=== PATIENT | female | born 1965 | race Caucasian/White ===

== ENCOUNTER → 2019-01-04 | Outpatient (CLI) | payer OTHER ==
[~2019-01-04] MED LIST: Aspirin EC81 MG PO; Estradiol0.5 MG PO; Ginger250 MG; LORA10 PO; MAGCHL64ER; VALSARTAN160 MG PO
[2019-01-04 08:18] LABS: BASOPHILS ABSOLUTE AUTO 0.02 K/mm3 (0.00-0.23); BASOPHILS PERCENT AUTO 0 % (0-2); EOSINOPHILS PERCENT AUTO 1 % (0-6); Hematocrit 44.3 % (33.0-51.0); Hemoglobin 15.2 g/dL (11.5-16.0); IMMATURE GRAN ABSOLUTE AUTO 0.03 K/mm3 (0.00-0.10); IMMATURE GRAN PERCENT AUTO 0 % (0-1); LYMPHOCYTES ABSOLUTE AUTO 1.29 K/mm3 (0.84-5.20); LYMPHOCYTES PERCENT AUTO 16 % (21-46); MONOCYTES ABSOLUTE AUTO 0.62 K/mm3 (0.16-1.47); MONOCYTES PERCENT AUTO 8 % (4-13); Mean Corpuscular HGB Conc 34.3 g/dL (31.5-36.5); Mean Corpuscular Volume 88 fL (80-100); Mean Platelet Volume 11.2 fL (9.1-12.4); NEUTROPHILS ABSOLUTE AUTO 6.01 K/mm3 (1.96-9.15); NEUTROPHILS PERCENT AUTO 75 % (41-73); Platelet Count 261 K/mm3 (150-400); RDW Coefficient Variation 13.2 % (11.7-14.2); RDW Standard Deviation 41.5 fL (35.1-46.3); Red Blood Cell Count 5.06 M/mm3 (3.80-5.20); White Blood Cell Count 8.07 K/mm3 (4.00-11.30)
[2019-01-04 08:28] LABS: Alanine Aminotransfer (ALT/SGP 30 U/L (12-78); Albumin, Blood 3.9 g/dL (3.4-5.0); Albumin/Globulin Ratio 1.1 (0.8-1.8); Alk Phos 78 U/L (40-126); Anion Gap 9 mmol/L (6-16); Aspartate Aminotrans (AST/SGOT 24 U/L (12-37); Bilirubin, Total 0.7 mg/dL (0.1-1.0); Blood Urea Nitrogen 16 mg/dL (8-24); CO2, Blood 26 mmol/L (21-32); Calcium, Blood 8.2 mg/dL (8.5-10.1); Chloride, Blood 101 mmol/L (98-108); Globulin, Blood 3.5 g/dL (2.2-4.0); Glomerular Filtration Rate >60 (60-); Glucose, Blood 108 mg/dL (70-99); Potassium, Blood 3.8 mmol/L (3.5-5.5); Sodium, Blood 136 mmol/L (136-145); Total Protein, Blood 7.4 g/dL (6.4-8.2)
== END | disposition home or self-care (01) ==
LOC: LAB EV 08:12 → LAB SHORT 08:12
PROVIDERS: General Practice
DX: K29.70 Gastritis, unspecified, without bleeding (principal)
CPT/HCPCS: 80053; 83690; 85025

== ENCOUNTER 2020-04-21 17:30 | Emergency (ER) | payer OTHER ==
[~2020-04-21] VITALS: Ht 167.6 cm; Wt 88.5 kg
[2020-04-21] MEDS ORDERED: AMLO5 PO (19:59)
[2020-04-21] MEDS ORDERED: ROSU10TA PO (20:00)
[2020-04-21] MEDS ORDERED: Roxicodone5 MG PO (21:04)
== END 2020-04-21 21:23 | disposition home or self-care (01) ==
LOC: ER 17:30
DX: S42.202A Unspecified fracture of upper end of left humerus, initial encounter for closed fracture (principal); Z88.8 Allergy status to other drugs, medicaments and biological substances; Z79.3 Long term (current) use of hormonal contraceptives; Z79.899 Other long term (current) drug therapy; W01.0XXA Fall on same level from slipping, tripping and stumbling without subsequent striking against object, initial encounter
CPT/HCPCS: 73030; 99283-25; A9270

== ENCOUNTER → 2020-07-14 | Outpatient (CLI) | payer MEDICARE ==
[~2020-07-14] MED LIST changes: +AMLO5 PO; +ROSU10TA PO; +Roxicodone5 MG PO
== END | disposition home or self-care (01) ==
LOC: LAB SHORT 12:14 → PLD 12:14
DX: D22.39 Melanocytic nevi of other parts of face (principal)
CPT/HCPCS: 88305

== ENCOUNTER → 2021-07-14 | Outpatient (CLI) | payer MEDICARE | END | disposition home or self-care (01) | LOC: LAB 12:13 → LAB SHORT 12:13 | DX: D48.5 Neoplasm of uncertain behavior of skin (principal) | CPT/HCPCS: 88305 ==

== ENCOUNTER → 2021-08-19 | Outpatient (CLI) | payer MEDICARE | END | disposition home or self-care (01) | LOC: LAB SHORT 14:46 | DX: D22.5 Melanocytic nevi of trunk (principal) | CPT/HCPCS: 88305 ==

== ENCOUNTER 2021-11-18 13:56 | Day surgery (SDC) | payer OTHER ==
[~2021-11-18] VITALS: Ht 167.6 cm; Wt 85.6 kg
[~2021-11-18 13:56] MED LIST changes: +LISI20 PO; +TIZA4 PO; +ZYRTEC10 M2 PO
--- NOTE | 2021-11-18 14:50 | NUR ---
11/18/21 1450 Kayla Gonzales 1 TRY RIGHT MCKNIGHT CODYW
== END 2021-11-18 16:32 | disposition home or self-care (01) ==
LOC: ORSCSDS 13:56
PROVIDERS: Internal Medicine Gastroenterology
PROC: 0DJD8ZZ Inspection of Lower Intestinal Tract, Via Natural or Artificial Opening Endoscopic (ICD-10-PCS; principal; 2021-11-18 15:15)
DX: R10.84 Generalized abdominal pain (principal); Z86.010 Personal history of colon polyps; K57.30 Diverticulosis of large intestine without perforation or abscess without bleeding; K59.00 Constipation, unspecified; Z80.0 Family history of malignant neoplasm of digestive organs; E66.9 Obesity, unspecified; Z68.31 Body mass index [BMI] 31.0-31.9, adult; Z79.899 Other long term (current) drug therapy
CPT/HCPCS: J0330; J0461; J2405; J2704; J7120

== ENCOUNTER → 2022-06-22 | Outpatient (CLI) | payer OTHER | LOC: PLD 11:16 → LAB SHORT 11:16 | DX: D22.5 Melanocytic nevi of trunk (principal); L81.4 Other melanin hyperpigmentation | CPT/HCPCS: 88305 ==

== ENCOUNTER 2022-11-15 06:04 | Day surgery (SDC) | payer OTHER ==
[~2022-11-15] VITALS: Ht 167.6 cm; Wt 90.3 kg
[2022-11-15] MEDS ORDERED: VALS80 PO (06:53)
--- NOTE | 2022-11-15 08:38 | NUR ---
11/15/22 0838 Saulo Vieyra NO 3 LEAD, PER DR. DYKES.
--- NOTE | 2022-11-15 09:50 | NUR ---
11/15/22 0950 Saulo Vieyra PT REPORTED 1/10 PAIN PRIOR TO DISCHARGE. SHE STATED PAIN WAS TOLERABLE AND DENIED NAUSEA.
== END 2022-11-15 09:44 | disposition home or self-care (01) ==
LOC: ORSCSDS 06:04
PROVIDERS: Orthopaedic Surgery
PROC: 0SBC4ZZ Excision of Right Knee Joint, Percutaneous Endoscopic Approach (ICD-10-PCS; principal; 2022-11-15 07:30)
DX: S83.241A Other tear of medial meniscus, current injury, right knee, initial encounter (principal); M17.11 Unilateral primary osteoarthritis, right knee; I10 Essential (primary) hypertension; E78.00 Pure hypercholesterolemia, unspecified; Z79.899 Other long term (current) drug therapy; Z79.82 Long term (current) use of aspirin
CPT/HCPCS: A9270; J0690; J1100; J1885; J2250; J2370; J2405; J2704; J2765; J2795; J3010

== ENCOUNTER → 2023-06-21 | Outpatient (CLI) | payer OTHER ==
[~2023-06-21] MED LIST changes: +VALS80 PO
== END | disposition home or self-care (01) ==
LOC: LAB 15:21 → LAB SHORT 15:21
DX: N39.0 Urinary tract infection, site not specified (principal)
CPT/HCPCS: 87077; 87086; 87186

== ENCOUNTER → 2023-07-04 | Outpatient (CLI) | payer OTHER | LOC: LAB SHORT 11:34 → LAB 11:34 | DX: N39.0 Urinary tract infection, site not specified (principal) | CPT/HCPCS: 87077; 87086; 87186 ==

== ENCOUNTER 2024-04-17 09:40 | Emergency (ER) | payer OTHER ==
[~2024-04-17] VITALS: Ht 167.6 cm; Wt 86.2 kg
[2024-04-17 09:47] VITALS: BP 159/106
[2024-04-17] MEDS ORDERED: Ketorolac Tromethamine 30mg Vial IM ONE (11:00)
[2024-04-17] MEDS ORDERED: Percocet 5-3251 EACH PO (11:42)
[2024-04-17] MEDS ORDERED: OxyCODONE 5 mg/Acetamin 325 mg TABLET PO ONE (11:50)
== END 2024-04-17 12:03 | disposition home or self-care (01) ==
LOC: ER 09:40
DX: M25.562 Pain in left knee (principal); Z79.899 Other long term (current) drug therapy; Z88.1 Allergy status to other antibiotic agents; Z88.8 Allergy status to other drugs, medicaments and biological substances
CPT/HCPCS: 73562-LT; 96372; 99283-25; A9270; J1885

== ENCOUNTER 2024-09-04 10:03 | Day surgery (SDC) | payer OTHER ==
[~2024-09-04] VITALS: Ht 167.6 cm; Wt 90.2 kg
[2024-09-04] VITALS (11 sets, daily range): BP systolic 92–166; BP diastolic 59–100
[~2024-09-04 10:03] MED LIST changes: +Acetaminophen 500 MG Tab PO SCH; +CeFAZolin Sodium 2,000 MG in NS 100 ML IV SCH; +Chlorhexidine Mouth Care 15 ML UDC MT SCH; +Flonase 0.05% N16 GM; +GENICIN500 M1 PO; +Lactated Ringer's 1,000 ML IV SCH; +MULVITA PO; +OxyCODONE HCL 10 MG TABCR PO SCH; +Percocet 5-3251 EACH PO; +ROSUVASTATIN CA10 MG PO; +Tranexamic Acid 1,000 MG in NS 100 ML IV SCH; -VALS80 PO; +XYZAL5 MG PO; -ZYRTEC10 M2 PO
[2024-09-04] MEDS ORDERED: Ropivacaine 0.5% HCl/Pf 123.125 MG,EPINEPHrine HCL 0.25 MG,Ketorolac Tromethamine 15 MG... INFIL SCH (10:25)
[2024-09-04] MEDS ORDERED: Midazolam HCl 1MG / ML 2ML Vial ONE (13:19)
[2024-09-04] MEDS ORDERED: propofoL 60 ML IV ONE (13:43)
[2024-09-04] MEDS ORDERED: Fluticasone 0.05% Nasal Spray PRN (14:05)
[2024-09-04] MEDS ORDERED: Bisacodyl 10 MG Supp PR PRN (14:10)
[2024-09-04] MEDS ORDERED: DiphenhydrAMINE HCL 25 MG Cap PO PRN (14:10)
[2024-09-04] MEDS ORDERED: Phenylephrine HCl 100 MCG/ML-NS 10MLSYR (1MG/10ML) ONE (14:12)
[2024-09-04] MEDS ORDERED: Magnesium Hydroxide Conc 10 ML UDC PO PRN (14:15)
[2024-09-04] MEDS ORDERED: Lactated Ringer's 1,000 ML IV SCH (14:15)
[2024-09-04] MEDS ORDERED: Ondansetron HCl 2 MG / ML 2ML Vial IV PRN (14:15)
[2024-09-04] MEDS ORDERED: Metoclopramide HCl 5MG / ML 2ML Vial IV PRN (14:20)
[2024-09-04] MEDS ORDERED: Promethazine HCl 25 MG Tab PO PRN (14:35)
[2024-09-04] MEDS ORDERED: FLU VACC TS2024-25(6MOS UP)/PF 45 MCG/0.5 ML SYRINGE IM SCH (14:35)
[2024-09-04] MEDS ORDERED: HYDROmorphone HCl 2 MG Tab PO PRN (14:35)
[2024-09-04] MEDS ORDERED: HYDROmorphone HCl/Pf 1MG SYR IV PRN (14:35)
[2024-09-04] MEDS ORDERED: Acetaminophen 500 MG Tab PO SCH (16:00)
[2024-09-04] MEDS ORDERED: Ketorolac Tromethamine 15mg Vial IV SCH (18:00)
--- NOTE | 2024-09-04 18:27 | NUR ---
SHIFT SUMMARY ARRIVED AROUND 1600, WAS INITIALLY FEELING VERY WELL BUT AFTER SPINAL BEGAN TO WEAR OFF HAS BECOME PAINFUL & NAUSEATED. STILL CANNOT LIFT SURGICAL LEG BUT APPEARS TO HAVE GOOD SENSATION. SURG SITE WNL. WAS ABLE TO HAVE SOME BITES OF DINNER. NO VOID OR OOB DUE TO SPINAL.
[2024-09-04] MEDS ORDERED: Losartan Potassium 50 MG Tab PO SCH (21:00)
[2024-09-04] MEDS ORDERED: Rosuvastatin Calcium 10 MG Tab PO SCH (21:00)
[2024-09-04] MEDS ORDERED: TiZANidine HCl 4 MG Tab PO SCH (21:00)
[2024-09-04] MEDS ORDERED: Docusate Sodium 100 MG Cap PO SCH (21:00)
[2024-09-04] MEDS ORDERED: EstradioL 0.5 MG Tablet PO SCH (21:00)
[2024-09-04] MEDS ORDERED: CeFAZolin Sodium 2,000 MG in NS 100 ML IV SCH (21:45)
[2024-09-05 00:28] VITALS: BP 111/66
[2024-09-05 04:29] VITALS: BP 127/79
--- NOTE | 2024-09-05 05:21 | NUR ---
SHIFT SUMMARY PT POD 0 LEFT TKA. PT HAS BEEN UP AND AMBULATING, TOLERATING PO INTAKE AND VOIDING. PAIN MANAGED WITH MEDS PER EMAR. SURGICAL SITE WNL. VITALS STABLE. PLAN OF CARE REMAINS UNCHANGED. PLAN IS FOR DISCHARGE TODAY. BED IN LOWEST POSITION, CALL LIGHT WITHIN REACH.
[2024-09-05 05:51] LABS: BASOPHILS ABSOLUTE AUTO 0.03 K/mm3 (0.00-0.23); BASOPHILS PERCENT AUTO 0 % (0-2); EOSINOPHILS ABSOLUTE AUTO 0.09 K/mm3 (0.00-0.68); EOSINOPHILS PERCENT AUTO 1 % (0-6); Hematocrit 39.1 % (33.0-51.0); Hemoglobin 13.2 g/dL (11.5-16.0); IMMATURE GRAN ABSOLUTE AUTO 0.02 K/mm3 (0.00-0.10); IMMATURE GRAN PERCENT AUTO 0 % (0-1); LYMPHOCYTES ABSOLUTE AUTO 2.11 K/mm3 (0.84-5.20); LYMPHOCYTES PERCENT AUTO 21 % (21-46); MONOCYTES ABSOLUTE AUTO 1.15 K/mm3 (0.16-1.47); MONOCYTES PERCENT AUTO 11 % (4-13); Mean Corpuscular HGB 30.4 pg (26.0-34.0); Mean Corpuscular HGB Conc 33.8 g/dL (31.5-36.5); Mean Corpuscular Volume 90 fL (80-100); Mean Platelet Volume 10.7 fL (9.1-12.4); NEUTROPHILS ABSOLUTE AUTO 6.79 K/mm3 (1.96-9.15); NEUTROPHILS PERCENT AUTO 67 % (41-73); Platelet Count 264 K/mm3 (150-400); RDW Coefficient Variation 12.8 % (11.7-14.2); RDW Standard Deviation 42.5 fL (35.1-46.3); Red Blood Cell Count 4.34 M/mm3 (3.80-5.20); White Blood Cell Count 10.19 K/mm3 (4.00-11.30)
[2024-09-05 06:20] LABS: Bun/Creatinine Ratio 14.4 (12.0-20.0); Calcium, Blood 8.9 mg/dL (8.5-10.1); Creatinine, Blood 0.63 mg/dL (0.40-1.00); Potassium, Blood 4.4 mmol/L (3.5-5.5)
[2024-09-05 07:32] VITALS: BP 120/66
[2024-09-05] MEDS ORDERED: Loratadine 10 MG Tab PO SCH (09:00)
[2024-09-05] MEDS ORDERED: Aspirin 81 MG Chew PO SCH (09:00)
[2024-09-05] MEDS ORDERED: AmLODIPine Besylate 5 MG Tab PO SCH (09:00)
[2024-09-05] MEDS ORDERED: Multivitamins 1 Tab PO SCH (09:00)
[2024-09-05] MEDS ORDERED: ASPI81CH PO (09:23)
--- NOTE | 2024-09-05 09:56 | NUR ---
DISCHARGE PT WORKED w/ THERAPY. PAIN MANAGEMENT IS AN ISSUE BUT FEELS OK DC'ing & DISCUSSED w/ DIDIER TO CALL FOR UNCONTROLLED PAIN. EATING, DRINKING, & VOIDING WELL. MELANY & LAUREN CERRATO SENT w/ PT. ESCORTED OUT VIA W/C.
[2024-09-05] MEDS ORDERED: EstradioL 0.5 MG Tablet PO SCH (21:00)
== END 2024-09-05 10:07 | disposition home or self-care (01) ==
LOC: ORSCMMR 10:03 → SURS 15:39 → ORSCMMR 23:00 → SURS 23:00 → ORSCMMR 09-05 10:07
PROVIDERS: Orthopaedic Surgery
PROC: 0SRD0JA Replacement of Left Knee Joint with Synthetic Substitute, Uncemented, Open Approach (ICD-10-PCS; principal; 2024-09-04 11:00)
DX: M17.12 Unilateral primary osteoarthritis, left knee (principal); I10 Essential (primary) hypertension; Z79.899 Other long term (current) drug therapy
CPT/HCPCS: 36415; 73560-LT; 80048; 85025; 97110; 97116; 97162; 97530; A9270; C1713; C1776; J0171; J0690; J0735; J1885; J2250; J2371; J2405; J2704; J2795; J7120